=== PATIENT | male | born 2000 | race Caucasian/White ===

== ENCOUNTER 2022-03-07 07:04 | Emergency (ER) | payer OTHER ==
[~2022-03-07] VITALS: Ht 182.9 cm; Wt 110.0 kg
[2022-03-07] MEDS ORDERED: SODIUM CHLORIDE 0.9% 1,000 ML IV ONE (07:45)
[2022-03-07 08:30] LABS: BASOPHILS % 0.6 % (0.0-2.0); EOSINOPHILS % 4.3 % (0.0-5.0); HEMATOCRIT. 43.6 % (42.0-52.0); LYMPHOCYTES % 33.9 % (20.0-50.0); MEAN PLATELET VOLUME 7.8 fl (7.4-10.4); MONOCYTES % 9.7 % (2.0-8.0); NEUTROPHILS % 51.5 % (40.0-76.0); PLATELET 236 x1000/uL (130-400); RED BLOOD CELL COUNT 4.85 mill/uL (4.7-6.1); RED CELL DISTRIBUTION WIDTH 13.2 % (11.6-14.6)
[2022-03-07 08:36] LABS: CHLORIDE 109 mEq/L (98-107)
[2022-03-07 08:45] LABS: PHOSPHORUS 2.4 mg/dL (2.5-4.9)
[2022-03-07 08:50] LABS: INR 0.9; PROTHROMBIN TIME 10.2 sec (9.6-11.0)
[2022-03-07 09:58] VITALS: BP 123/77
[2022-03-07] MEDS ORDERED: TOPUD PO (10:31)
[2022-03-07] MEDS ORDERED: IBUP-2028 MT (10:31)
== END 2022-03-07 11:00 | disposition home or self-care (01) ==
LOC: ER 07:04
DX: R00.2 Palpitations (principal); I48.20 Chronic atrial fibrillation, unspecified; F12.10 Cannabis abuse, uncomplicated; F17.210 Nicotine dependence, cigarettes, uncomplicated; Z20.822 Contact with and (suspected) exposure to COVID-19; Z86.16 Personal history of COVID-19
CPT/HCPCS: 36415; 71045; 80053; 83735; 83880; 84100; 84484; 85025; 85610; 87426; 93005; 96360; 96361; 99285; C9803; J7030

== ENCOUNTER 2022-12-22 19:37 | Emergency (ER) | payer MEDICAID, OTHER ==
[~2022-12-22] VITALS: Ht 180.3 cm; Wt 114.0 kg
[~2022-12-22 19:37] MED LIST: IBUP-2028 MT; TOPUD PO
[2022-12-22] MEDS ORDERED: IBUPROFEN 400MG TABLET PO ONE (22:30)
[2022-12-22] MEDS ORDERED: ACETAMINOPHEN 325MG TABLET PO ONE (22:30)
[2022-12-22 22:46] VITALS: BP 120/72
[2022-12-23] MEDS ORDERED: ACET-2708 MT (01:46)
[2022-12-23] MEDS ORDERED: NAPR-681 MT (01:46)
== END 2022-12-23 02:04 | disposition home or self-care (01) ==
LOC: ER 19:37
DX: S82.861A Displaced Maisonneuve's fracture of right leg, initial encounter for closed fracture (principal); W50.2XXA Accidental twist by another person, initial encounter; Y93.89 Activity, other specified; Y92.89 Other specified places as the place of occurrence of the external cause; Y99.8 Other external cause status; F12.10 Cannabis abuse, uncomplicated
CPT/HCPCS: 29505; 73590; 73610; 73630; 99284; Z7610

== ENCOUNTER 2025-07-30 02:33 | Emergency (ER) | payer MEDICAID ==
[~2025-07-30] VITALS: Ht 180.3 cm; Wt 118.0 kg
[~2025-07-30 02:33] MED LIST changes: +ACET-2708 MT; +NAPR-681 MT
[2025-07-30 02:38] VITALS: O2SAT 96
[2025-07-30] MEDS: BACITRACIN ZINC OINT UDPKT TOP ONE (04:07)
[2025-07-30 04:38] VITALS: BP 135/87; PULSE 100; RESP 14; TEMP 37; O2SAT 100
== END 2025-07-30 04:44 ==
LOC: ER 02:33
DX: S50.312A Abrasion of left elbow, initial encounter (principal); S50.311A Abrasion of right elbow, initial encounter; S09.90XA Unspecified injury of head, initial encounter; R68.84 Jaw pain; R20.0 Anesthesia of skin; F12.90 Cannabis use, unspecified, uncomplicated; J45.909 Unspecified asthma, uncomplicated; Z02.89 Encounter for other administrative examinations; Z79.899 Other long term (current) drug therapy; Z79.1 Long term (current) use of non-steroidal anti-inflammatories (NSAID); Y09 Assault by unspecified means; Y93.89 Activity, other specified; Y92.89 Other specified places as the place of occurrence of the external cause; Y99.8 Other external cause status
CPT/HCPCS: 99284; 99285